=== PATIENT | male | born 1985 | race Caucasian/White ===

== ENCOUNTER 2022-08-29 13:28 | Emergency (ER) | payer SELFPAY ==
[~2022-08-29] VITALS: Ht 180.3 cm; Wt 98.0 kg
[2022-08-29 13:50] VITALS: BP 179/90
== END 2022-08-29 14:57 | disposition home or self-care (01) ==
LOC: ER 13:41
DX: F16.10 Hallucinogen abuse, uncomplicated (principal); F17.290 Nicotine dependence, other tobacco product, uncomplicated; I10 Essential (primary) hypertension; Z13.9 Encounter for screening, unspecified
CPT/HCPCS: 99283; 99406